=== PATIENT | female | born 1990 | race Caucasian/White ===

== ENCOUNTER 2020-10-19 14:49 | Emergency (ER) | payer OTHER ==
[~2020-10-19 14:49] MED LIST: COLACE 100MG C100 MG PO; IBUPROFEN800 MG PO; MACROBID 100 M100 MG PO; NAPROSYN500 MG PO; PROVERA 10 MG T10 MG GT; TYLENOL 500 MG500 MG PO; ZOFRAN ODT 4 MG4 MG PO
[2020-10-19 15:21] LABS: HEMOGLOBIN 13.5 gm/dl (12.3-15.3); RED BLOOD COUNT 4.43 M/UL (4.00-5.10); WHITE BLOOD COUNT 9.5 K/UL (4.5-11.0)
[2020-10-19 15:47] LABS: BUN/CREATININE RATIO 12 (0-10)
[2020-10-19] MEDS ORDERED: ASPIRIN CHEWABL81 MG PO (16:50)
== END 2020-10-19 19:47 | disposition home or self-care (01) ==
LOC: ER1 14:49
PROVIDERS: Emergency Medicine
DX: R07.9 Chest pain, unspecified (principal); I10 Essential (primary) hypertension; F41.9 Anxiety disorder, unspecified; Z90.49 Acquired absence of other specified parts of digestive tract; F17.200 Nicotine dependence, unspecified, uncomplicated
CPT/HCPCS: 71045; 80053; 82550; 82553; 83874; 84484; 85025; 85379; 93005; 99285